=== PATIENT | male | born 1975 | race Caucasian/White ===

== ENCOUNTER 2018-02-27 16:57 | Emergency (ER) | payer MEDICAID, OTHER ==
[~2018-02-27] VITALS: Ht 182.9 cm; Wt 72.6 kg
[2018-02-27 17:15] VITALS: BP 127/82
== END 2018-02-27 19:20 | disposition left against medical advice (07) ==
LOC: EDBD 16:57 → ER 17:03
DX: L02.414 Cutaneous abscess of left upper limb (principal); Z53.21 Procedure and treatment not carried out due to patient leaving prior to being seen by health care provider